=== PATIENT | male | born 1995 | race Caucasian/White ===

== ENCOUNTER 2020-01-29 23:35 | Emergency (ER) | payer OTHER ==
[~2020-01-29] VITALS: Ht 180.3 cm; Wt 96.6 kg
[2020-01-29 23:45] VITALS: Ht 180.3 cm; Wt 96.6 kg
[2020-01-30 02:17] VITALS: BP 146/98
== END 2020-01-30 02:17 | disposition home or self-care (01) ==
LOC: ED 23:35
DX: S09.90XA Unspecified injury of head, initial encounter (principal); W22.8XXA Striking against or struck by other objects, initial encounter; Y93.89 Activity, other specified; Y92.89 Other specified places as the place of occurrence of the external cause; Y99.8 Other external cause status